=== PATIENT | female | born 1940 | race Hispanic/Latino ===

== ENCOUNTER 2017-09-19 10:18 | Outpatient (CLI) | payer BC | END 2017-09-19 10:19 | disposition home or self-care (01) | LOC: BICMAMMO 10:18 | PROVIDERS: ATTEND Family Medicine | DX: Z12.31 Encounter for screening mammogram for malignant neoplasm of breast (principal) | CPT/HCPCS: 77063; 77067; G0202 ==

== ENCOUNTER 2017-12-07 10:11 | Inpatient (IN) | payer BC, MEDICARE ==
[2017-12-07] MEDS ORDERED: Acetaminophen 650 MG Suppository PR PRN (12:06)
[2017-12-07] MEDS ORDERED: Dextrose 50% Abboject 50 ML SYRINGE SLOW IVP PRN (12:09)
[2017-12-07] MEDS ORDERED: Dextrose 5% in Water 1,000 ML IV PRN (12:09)
[2017-12-07] MEDS ORDERED: HumaLOG 300 UNITS/3 ML VIAL SC PRN (12:09)
[2017-12-07] MEDS ORDERED: Morphine 2 MG/ML SYRINGE SLOW IVP PRN (12:10)
[2017-12-07] MEDS ORDERED: hydrALAZINE 20 MG/ML VIAL SLOW IVP PRN (12:10)
--- NOTE | 2017-12-07 12:33 | HP ---
PRIMARY CARE PROVIDER: Sage Manzano M.D. CHIEF COMPLAINT: Abdominal pain. HISTORY OF PRESENT ILLNESS: Ms. Collazo is a pleasant 77-year-old lady who was seen at [facility] on 12/07/2017 following transfer from [facility]. She reports that she developed abdominal pain yesterday. She describes pain in the mid abdomen, mae umbilical, cramping, nonradiating, no known aggravating factors, but improved with sitting up. Curre ntly, she rates discomfort as 3/10. She denies having similar symptoms in the past. She initially t hought that it was secondary to Helicobacter pylori gastritis which she had in the past and took Tyle nol and Pepto-Bismol. However, the medications did not help. She therefore went to the emergency ro om. There, she was found to have a bowel obstruction. The emergency room physician discussed with katina gacria over the telephone and she is being admitted to the hospital. REVIEW OF SYSTEMS: The following complete review of systems was negative, unless otherwise mentioned in the HPI or below: Constitutional: Weight loss or gain, ability to conduct usual activities. Skin: Rash, itching. Eyes: Double vision, pain. ENT/Mouth: Nose bleeding, neck stiffness, pain, tenderness. Cardiovascular: Palpitations, dyspnea on exertion, orthopnea. Respiratory: Shortness of breath, wheezing, cough, hemoptysis, fever or night sweats. Gastrointestinal: Poor appetite, abdominal pain, heartburn, nausea, vomiting, constipation, or diarr hea. Genitourinary: Urgency, frequency, dysuria, nocturia. Musculoskeletal: Pain, swelling. Neurologic/Psychiatric: Anxiety, depression. Allergy/Immunologic: Skin rash, bleeding tendency. PAST MEDICAL HISTORY: Significant for diabetes mellitus type 2, dyslipidemia, hypertension, Helicoba cter pylori gastritis. PAST SURGICAL HISTORY: Hysterectomy. FAMILY HISTORY: Heart disease in her mother. SOCIAL HISTORY: The patient denies tobacco use, alcohol use or recreational drug use. CODE STATUS: I discussed her code status. She is FULL CODE. ALLERGIES: No known drug allergies. CURRENT MEDICATIONS: Amlodipine 2.5 mg daily, gabapentin 300 mg 2 times a day, metformin 500 mg jossie y, Tylenol p.r.n., valsartan/hydrochlorothiazide 320/25 mg daily. PHYSICAL EXAMINATION: GENERAL: On examination, Ms. Collazo is awake and alert, not in acute distress. VITAL SIGNS: Blood pressure is 147/74, pulse is 59. She is breathing at rate of 20 and saturating 9 5% on room air. She is afebrile. EYES: No scleral icterus. No conjunctival pallor. ENT: Dry mucosal membranes, no oropharyngeal erythema or exudates. NECK: Supple, nontender, normal range of movement. Trachea is midline. RESPIRATORY: Accessory muscles of breathing are not active. Chest wall movements are symmetric bila terally. LUNGS: Clear to auscultation without wheeze, rhonchi or crepitations. ABDOMEN: Soft, mild tenderness over the mid abdomen, no guarding or rigidity, sluggish bowel sounds, no hepatomegaly, no splenomegaly. NEUROLOGIC: Cranial nerves II-XII intact. Deep tendon reflexes are 2+. SKIN: No rashes or subcutaneous nodules. MUSCULOSKELETAL: Power is 5/5 in all 4 extremities. LYMPHATIC: No cervical lymphadenopathy. PSYCHIATRIC: Normal mood, normal affect. The patient is oriented to person, place, and time. LABORATORY DATA AND IMAGING DATA: Ms. Collazo's labs and investigations were reviewed. She had an e levated glucose of 165, but otherwise normal comprehensive metabolic profile. Gamma glutamyl transfe rase was normal. She has a normal white count, normal hemoglobin and normal platelet count. CT scan of the abdomen and pelvis showed bowel obstruction in the mid ileum in the midline of the mid to low er pelvis. ASSESSMENT AND PLAN: Ms. Collazo is a pleasant 77-year-old lady who was seen at [facility] on 12/07/2017. Her problem list includes: 1. Small-bowel obstruction: Ms. Collazo will be admitted to the hospital and started on low intermi ttent NG suction. General Surgery Service will be consulted for opinion and help with managing Ms. Syl tellez's small-bowel obstruction. 2. Hypertension: Monitor vital signs. P.r.n. IV hydralazine for blood pressure elevations. 3. Diabetes mellitus: Start Accu-Cheks, insulin sliding scale. Many thanks for allowing me to participate in your patient's care. Please feel free to contact me wi th any questions or concerns. LEVEL OF RISK: Moderate. LEVEL OF COMPLEXITY: Moderate.
--- NOTE | 2017-12-07 13:33 | CON ---
DATE OF CONSULTATION: 12/07/2017 REQUESTING PHYSICIAN: Dr. Elias HISTORY OF PRESENT ILLNESS: A 77-year-old woman presented to an [facility] hospital this morning complaining of insidious onset periumbilical abdominal pain which started approximately 2200 hours last night. The pain was described as sharp and intermittent, rated at a 9/10. The pain was associated with some nausea, but no emesis. The patient presented to the emergency department this morning when the pain failed to resolve. Last bowel movement was yesterday morning at approximately 9 o'clock and was normal. The last time she passed flatus was yesterday as well. A nasogastric tube was placed at a local emergency department. The patient underwent a CT scan of the abdomen and pelvis which was suggestive of acute small-bowel obstruction. The patient was transferred to [facility] for upper level of care. At the time of my evaluation, the patient reports no abdominal pain. She was given intravenous morphine sulfate prior to this transfer. Nasogastric tube remains in place and returns scant nonbilious effluent. PAST MEDICAL HISTORY: Significant for essential hypertension, type 2 diabetes mellitus, and iron deficiency anemia. The patient has also had a previous bleeding ulcer in the past which was treated conservatively. PAST SURGICAL HISTORY: Pertinent for abdominal hysterectomy through a low Pfannenstiel incision in the 70s. SOCIAL HISTORY: The patient denies any cigarette smoking, ethanol or illicit drug abuse. She lives at home with her family. PREHOSPITAL MEDICATIONS: Metformin 500 mg p.o. daily, aspirin 81 mg p.o. daily , amlodipine 5 mg p.o. daily, losartan she does not recall the dosage. She also takes gabapentin unknown dosage. ALLERGIES: The patient denies any known drug allergies. REVIEW OF SYSTEMS: Ten point review of system is essentially unremarkable except for as stated in past medical history and chief complaint. PHYSICAL EXAMINATION: GENERAL: This reveals a 77-year-old normally developed woman who is otherwise coherent and interactive and appears stated age. The patient is alert and oriented x3, appears to be in no acute distress at the time of my evaluation. VITAL SIGNS: Currently includes blood pressure 147/74, pulse 59, respiratory rate 20, temperature is 97.9 degrees Fahrenheit, oxygen saturation is 95% on room air. HEENT: Reveals normocephalic and atraumatic. Pupils are equal, round, and reactive to light and accommodation. Extraocular movements intact bilaterally. No sclerae icterus is present. Oral mucosa is pink and moist. No lesions are noted. NECK: Supple. No palpable lymphadenopathy or thyromegaly present. CARDIOVASCULAR: Reveals regular rate and rhythm, no murmurs or gallops are auscultated. LUNGS: Clear to auscultation bilaterally. Breathing regular and unlabored. ABDOMEN: Soft and obese. The abdomen is also nontender to palpation. Bowel sounds in all four quadrants appear normoactive. Liver and spleen are nonpalpable below costal margins. EXTREMITIES: Reveals 2+ radial and pedal pulses bilaterally. No ankle edema is present. NEUROLOGIC: Reveals no focal deficits present. PERTINENT LABORATORY DATA: I have reviewed all diagnostic studies from the referring hospital including a metabolic profile; sodium 141, potassium is 4.2, chloride is 102, bicarbonate 28, BUN 18, creatinine 0.8, glucose 165. Total bilirubin 0.6, AST 37, ALT 32. Urinalysis is unremarkable. CBC with 7900 white blood cells, hemoglobin 13.8, hematocrit is 39.8, platelet count is 240,000. I have also personally reviewed the accompanying CT scan of the abdomen and pelvis which reveals dilated small bowel loops with no clear transition zone present. There is gas in the colon and rectum. No pneumoperitoneum, pneumatosis intestinalis or free intraperitoneal fluid is noted. IMPRESSION: Acute partial small-bowel obstruction. PLAN: 1. No acute surgical indication for this patient at this time. We will initiate a small bowel follow through and continue serial clinical examinations. 2. We will make further recommendations as necessary. The above findings and plan has been discussed with the patient and family at bedside. They all indicated understanding of the information given. I have answered their questions. Thank you again, Dr. Elias for allowing me the opportunity to participate in the care of this patient. CULLEN
[2017-12-07 13:43] VITALS: BMI 29.2
--- NOTE | 2017-12-07 16:56 | RAD ---
EXAM: GASTROGRAFIN SMALL BOWEL 12/07/17 HISTORY: Evaluate for small bowel obstruction. COMPARISON: None. FINDINGS: Initial storage receipt poster radiograph demonstrates a nasogastric tube terminating in the distal stomach. Bowel gas pattern is nonspecific. There is excreted contrast in the urinary bladder. Patient was administered gastrografin. On the one hour image, there are multiple normal caliber small bowel loops opacified with contrast. Contrast also opacifies the right hemicolon. There is still melissa dence of contrast in the stomach. IMPRESSION: No evidence of high grade obstruction. POS: ROSANGELA
[2017-12-07] MEDS: Sodium Chloride 0.9% 1,000 ML IV SCH ×2 (17:43→22:50)
[2017-12-07] MEDS: Gabapentin 300 MG CAP PO SCH (20:45)
[2017-12-08 05:00] LABS: #Eosinphils 0.1 thou/uL (0.0-0.7); #Lymphocytes 1.3 thou/uL (1.20-3.40); #Monocytes 0.7 thou/uL (0.11-0.59); #Neutrophils 4.8 thou/uL (1.40-6.50); %Basophils 0.5 % (0.0-1.0); %Eosinophils 1.4 % (0.0-10.0); %Lymphocytes 18.7 % (21.0-51.0); %Neutrophils 69.4 % (42.0-75.0); Hemoglobin 12.7 g/dL (12.0-16.0); Mean Corpuscular HGB CONC 33.8 g/dL (32.0-36.0); Mean Corpuscular Hemoglobin 32.4 pg (27.0-31.0); Mean Corpuscular Volume 95.9 fl (81.0-99.0); Mean Platelet Volume 8.3 fL (7.4-10.4); Platelet Count 249 thou/uL (130-400); RBC Distribution Width 12.5 % (11.5-14.5); Red Blood Cell (RBC) Count 3.92 mill/uL (4.20-5.40); White Blood Cell (WBC) Count 6.9 thou/uL (4.8-10.8)
[2017-12-08 05:02] LABS: Anion Gap 12 mmol/L (10-20); BUN (Urea Nitrogen) 13 mg/dL (9.8-20.1); Calc. Creatinine Clearance 75 mL/min (70-130); Carbon Dioxide 25 mmol/L (23-31); Chloride 112 mmol/L (98-107); Estimated GFR-MDRD 78; Glucose 104 mg/dL (83-110); Potassium 3.9 mmol/L (3.5-5.1); Sodium 145 mmol/L (136-145)
[2017-12-08] MEDS ORDERED: Ferrous Sulfate 325 MG TAB PO SCH (08:00)
[2017-12-08] MEDS ORDERED: Amlodipine 5 MG TAB PO SCH (09:00)
[2017-12-08] MEDS ORDERED: Valsartan 80 MG TAB PO SCH (09:00)
[2017-12-08] MEDS ORDERED: Hydrochlorothiazide 25 MG TAB PO SCH (09:00)
[2017-12-08] MEDS ORDERED: Enoxaparin Sodium 40 MG/0.4 ML SYRINGE SC SCH (09:00)
[2017-12-08] MEDS: Gabapentin 300 MG CAP PO SCH (09:43)
[2017-12-08] MEDS ORDERED: Aspirin 81 mg Enteric Coated Tablet PO SCH (10:00)
--- NOTE | 2017-12-08 10:33 | PRG ---
DATE OF SERVICE: 12/08/2017 SUBJECTIVE: Ms. Collazo is a 77-year-old woman admitted yesterday with acute onset abdominal pain. Clinical radiographic examination at the time was consistent with acute partial small-bowel obstructi on. The patient had an unremarkable small bowel follow through. She has had 4 bowel movements since admission. She is passing flatus and denies any abdominal pain this morning. She was tolerating clear liquid diet. OBJECTIVE: VITAL SIGNS: This morning includes blood pressure 146/81, pulse 70, respiratory rate 16, temperature 98.4 degrees Fahrenheit, oxygen saturation is 97% on room air. HEENT: Reveals normocephalic and atraumatic. The patient has no jugular venous distention noted. HEART: Reveals regular rate and rhythm, no murmurs or gallops auscultated. CHEST: Lungs are clear to auscultation bilaterally. Breathing is regular and unlabored. ABDOMEN: Soft, nontender, nondistended. Bowel sounds in all 4 quadrants appear normoactive. NEUROLOGIC: Reveals no focal deficits present. LABORATORY DATA: Includes a CBC with 6900 white blood cells, hemoglobin 12.7, hematocrit is 37.6, pl atelet count is 249,000. Metabolic profile: Sodium 145, potassium is 3.9, chloride is 112, bicarbonate 25, BUN 13, creatinine 0.73, glucose is 104. IMPRESSION: Resolved acute small-bowel obstruction. PLAN: Advance diet to general. If patient is tolerating this she may be discharged home later today from a surgical standpoint. The above findings and plan discussed with the patient who indicates understanding of information giv en. I have answered her questions.
[2017-12-08 15:52] VITALS: BP 129/71; TEMP 97.9
--- NOTE | 2017-12-08 19:54 | DIS ---
DATE OF ADMISSION: 12/07/2017 DATE OF DISCHARGE: 12/08/2017 PRIMARY CARE PHYSICIAN: Dr. Sage Manzano. DISCHARGE DIAGNOSIS: Acute small-bowel obstruction. CONDITION OF PATIENT ON THE DAY OF DISCHARGE: Stable. I assessed Ms. Collazo on the day of discharg e. She denies any chest pain or shortness of breath. She is tolerating diet well. She had bowel mo vement last night. PHYSICAL EXAMINATION: VITAL SIGNS: Stable. HEART: S1 and S2 are heard, regular. LUNGS: Clear to auscultation bilaterally. ABDOMEN: Soft, nontender, bowel sounds are heard. DISCHARGE MEDICATIONS: No change was made to her preadmission home medications as dictated on histor y and physical note from 12/07/2017. CONSULTATIONS DURING THIS HOSPITALIZATION: General Surgery, Dr. Jeff Quinn. HOSPITAL COURSE: Ms. Collazo is a pleasant 77-year-old lady who was admitted to [facility] on 12/07/2017 for small-bowel obstruction. She was seen by General Surgery Service. S he also had small bowel x-rays done on 12/07/2017, which did not reveal any evidence of high-grade ob struction. She was tolerating diet well. She was cleared by General Surgery service for discharge. She is advised to follow up with her primary care provider in 3-5 days. Many thanks for allowing me to participate in your patient's care. Please feel free to contact me wi th any questions or concerns. DISCHARGE DESTINATION: Home. TOTAL AMOUNT OF TIME SPENT COORDINATING THIS DISCHARGE: 32 minutes.
[2017-12-08] MEDS ORDERED: Gabapentin 300 MG CAP PO SCH (21:00)
[2017-12-09] MEDS ORDERED: Non-Formulary Item 1 EACH (Valsartan/Hydrochlorothiazide [Valsartan-Hctz 320-25 Mg Tab] 1 PO SCH (09:00)
[2017-12-09] MEDS ORDERED: Amlodipine 5 MG TAB PO SCH (09:00)
== END 2017-12-08 17:01 | disposition home or self-care (01) | DRG 390 ==
LOC: SJJU 10:22
PROVIDERS: ADMIT Internal Medicine; ATTEND Internal Medicine
DX: K56.600 Partial intestinal obstruction, unspecified as to cause (principal); E11.9 Type 2 diabetes mellitus without complications; I10 Essential (primary) hypertension
CPT/HCPCS: 36415; 36416; 74250; 80048; 85025; A4216; J1650

== ENCOUNTER 2018-05-08 15:18 | Outpatient (CLI) | payer BC ==
--- NOTE | 2018-05-08 18:03 | ULT ---
VENOUS DOPPLER ULTRASOUND OF THE LEFT LOWER EXTREMITY: Date: 05/08/18 HISTORY: Left lower extremity pain and edema. TECHNIQUE: Valera scale ultrasound with color flow and spectral Doppler imaging of the deep venous systems of the left lower extremity is performed. FINDINGS: There is good flow, compression, and augmentation noted in the left common femoral, femoral, deep fem oral, popliteal, posterior tibial, and greater saphenous veins. IMPRESSION: No evidence of deep venous thrombosis in the left lower extremity. POS: SHEKHAR
== END 2018-05-08 15:19 | disposition home or self-care (01) ==
LOC: ULT 15:18
PROVIDERS: ATTEND Family Medicine
DX: M79.662 Pain in left lower leg (principal)

== ENCOUNTER 2018-10-11 15:49 | Outpatient (CLI) | payer BC | END 2018-10-11 15:50 | disposition home or self-care (01) | LOC: BICMAMMO 15:49 | PROVIDERS: ATTEND Family Medicine | DX: Z12.31 Encounter for screening mammogram for malignant neoplasm of breast (principal) | CPT/HCPCS: 77063; 77067 ==

== ENCOUNTER 2021-03-31 13:15 | Outpatient (CLI) | payer BC ==
[~2021-03-31 13:15] MED LIST: Iopamidol 370 76% 100 ML VIAL ONE; Iopamidol 370 76% 50 ML VIAL FS ONE
== END 2021-03-31 13:16 | disposition home or self-care (01) ==
LOC: CT 13:15
PROVIDERS: ATTEND Family Medicine
DX: R10.13 Epigastric pain (principal); R11.2 Nausea with vomiting, unspecified; R63.4 Abnormal weight loss; R91.1 Solitary pulmonary nodule
CPT/HCPCS: 74177; Q9967

== ENCOUNTER 2022-05-25 10:50 | Outpatient (CLI) | payer MEDICARE, BC | END 2022-05-25 10:51 | disposition home or self-care (01) | LOC: BICMAMMO 10:50 | PROVIDERS: ATTEND Family Medicine | DX: Z12.31 Encounter for screening mammogram for malignant neoplasm of breast (principal); Z91.89 Other specified personal risk factors, not elsewhere classified | CPT/HCPCS: 77063; 77067 ==

== ENCOUNTER 2023-08-19 09:24 | Outpatient (CLI) | payer MEDICARE, BC | END 2023-08-19 09:25 | disposition home or self-care (01) | LOC: BICMAMMO 09:24 | PROVIDERS: ATTEND Family Medicine | DX: Z12.31 Encounter for screening mammogram for malignant neoplasm of breast (principal) | CPT/HCPCS: 77063; 77067 ==

== ENCOUNTER → 2024-08-29 | Outpatient (CLI) | payer MEDICARE, BC | LOC: BICMAMMO 12:31 | PROVIDERS: ATTEND Family Medicine | DX: Z12.31 Encounter for screening mammogram for malignant neoplasm of breast (principal); Z91.89 Other specified personal risk factors, not elsewhere classified | CPT/HCPCS: 77063; 77067 ==

== ENCOUNTER 2025-09-13 13:59 | Outpatient (CLI) | payer MEDICARE, BC | END 2025-09-13 14:00 | disposition home or self-care (01) | LOC: BICMAMMO 13:59 | PROVIDERS: ATTEND Family Medicine | DX: Z12.31 Encounter for screening mammogram for malignant neoplasm of breast (principal); Z91.89 Other specified personal risk factors, not elsewhere classified | CPT/HCPCS: 77063; 77067 ==